=== PATIENT | female | born 1965 | race Caucasian/White ===

== ENCOUNTER 2022-12-30 12:02 | Emergency (ER) | payer OTHER ==
[2022-12-30 12:50] LABS: BASOPHILS # (AUTO) 0.1 10^3/uL (0.0-0.1); BASOPHILS % (AUTO) 0.8 %; EOSINOPHILS # (AUTO) 0.1 10^3/uL (0.0-0.7); EOSINOPHILS % (AUTO) 1.7 %; HCT - HEMATOCRIT 39.1 % (37.0-47.0); HGB - HEMOGLOBIN 12.7 g/dL (12.0-16.0); LYMPHOCYTES # (AUTO) 3.3 10^3/uL (1.5-3.5); LYMPHOCYTES % (AUTO) 54.8 %; MEAN CORPUSCULAR HGB CONC 32.5 g/dL (32.0-36.0); MEAN CORPUSCULAR VOLUME 86.1 fL (81.0-99.0); MEAN PLATELET VOLUME 9.8 fL (7.9-10.8); MONOCYTES # (AUTO) 0.6 10^3/uL (0.0-1.0); MONOCYTES % (AUTO) 10.2 %; NEUTROPHILS # (AUTO) 1.9 10^3/uL (1.5-6.6); NEUTROPHILS % (AUTO) 32.5 %; PLT - PLATELET COUNT 243 10^3/uL (130-450); RED BLOOD COUNT 4.54 10^6/uL (4.20-5.40)
[2022-12-30 13:02] LABS: ALBUMIN 4.2 g/dL (3.2-5.5); ALBUMIN/GLOBULIN RATIO 1.6 (1.0-2.2); BILIRUBIN,TOTAL 0.5 mg/dL (0.2-1.0); CALCIUM 9.2 mg/dL (8.5-10.3); CREATININE 0.9 mg/dL (0.4-1.0); POTASSIUM 3.6 mmol/L (3.5-5.0); TOTAL PROTEIN 6.9 g/dL (6.7-8.2)
[2022-12-30 15:29] LABS: BILIRUBIN,URINE NEGATIVE (NEGATIVE); GLUCOSE, URINE (UA) NEGATIVE (NEGATIVE); KETONES,URINE (UA) NEGATIVE (NEGATIVE); LEUKOCYTE ESTERASE, URINE NEGATIVE (NEGATIVE); NITRITE,URINE NEGATIVE (NEGATIVE); OCCULT BLOOD,URINE NEGATIVE (NEGATIVE); PH,URINE 6.5 PH (5.0-7.5); PROTEIN,URINE NEGATIVE (NEGATIVE); UROBILINOGEN,URINE 0.2 (NORMAL) E.U./dL (NORMAL)
[2022-12-30] MEDS ORDERED: iohexoL-300 100 ML VIAL ONE (15:29)
--- NOTE | 2022-12-30 15:39 | ED Physician Documentation ---
PD HPI ABD PAIN - Stated complaint Stated Complaint: ABD PX - Chief complaint Chief Complaint: Abd Pain - History obtained from History obtained from: Patient - History of Present Illness Timing - onset: How many weeks ago (4) Timing - duration: Weeks (4) Timing - details: Gradual onset Pain level max: 4 Pain level now: 3 Quality: Aching, Dull Location: LLQ Radiation: No: Chest, , Lower back, Left flank, Left shoulder, Right flank, Right shoulder, Upper back Improved by: Other (nothing) Worsened by: Other (nothing) Associated symptoms: Nausea, Constipation. No: Fever, Vomiting, Hematemesis, Melena, Hematochezia, Dysuria Recently seen: Clinic (being worked up by her PCP, but states that she is awaiting a pre-auth for CT. States increased pain today. States normal colonoscopy 7 years ago.) Review of Systems Constitutional: denies: Fever, Chills Respiratory: denies: Dyspnea, Cough GI: denies: Vomiting, Hematemesis, Bloody / black stool : denies: Dysuria Skin: denies: Rash Musculoskeletal: denies: Neck pain, Back pain Neurologic: denies: Headache PD PAST MEDICAL HISTORY - Past Medical History Past Medical History: Yes - Past Surgical History Past Surgical History: Yes General: Appendectomy - Present Medications Home Medications: Ambulatory Orders Medication Instructions Recorded Confirmed Magnesium Citrate 296 ml PO DAILY #296 ml 12/30/22 polyethylene glycoL 3350(BULK) 17 gm PO DAILY PRN #1 each 12/30/22 [Miralax] - Allergies Allergies/Adverse Reactions: Allergies Allergy/AdvReac Type Severity Reaction Status Date / Time Sulfa (Sulfonamide Allergy Unknown Verified 12/30/22 12:12 Antibiotics) PD ED PE NORMAL - Vitals Vital signs reviewed: Yes - General General: Alert and oriented X 3, No acute distress - HEENT HEENT: PERRL, Moist mucous membranes - Neck Neck: Supple, no meningeal sign - Cardiac Cardiac: RRR, Strong equal pulses - Respiratory Respiratory: No respiratory distress, Clear bilaterally - Abdomen Abdomen: Soft, Non tender, Non distended - Back Back: No CVA TTP, No spinal TTP - Derm Derm: Warm and dry - Neuro Neuro: Alert and oriented X 3 - Psych Psych: Normal mood, Normal affect Results - Vitals Vitals: Vital Signs - 24 hr 12/30/22 12/30/22 12:08 16:44 Temperature 37.1 C Heart Rate 69 76 Respiratory 16 16 Rate Blood Pressure 139/92 H 134/89 H O2 Saturation 100 100 Oxygen O2 Source Room air - Labs Labs: Laboratory Tests 12/30/22 12/30/22 12/30/22 12:26 12:45 12:45 WBC 6.0 RBC 4.54 Hgb 12.7 Hct 39.1 MCV 86.1 MCH 28.0 MCHC 32.5 RDW 13.0 Plt Count 243 MPV 9.8 Neut # (Auto) 1.9 Lymph # (Auto) 3.3 Shannon # (Auto) 0.6 Eos # (Auto) 0.1 Baso # (Auto) 0.1 Absolute Nucleated RBC 0.00 Nucleated RBC % 0.0 Sodium 140 Potassium 3.6 Chloride 103 Carbon Dioxide 30 Anion Gap 7.0 BUN 13 Creatinine 0.9 Estimated GFR (MDRD) 65 L Glucose 111 H Calcium 9.2 Total Bilirubin 0.5 AST 17 ALT 15 Alkaline Phosphatase 134 H Total Protein 6.9 Albumin 4.2 Globulin 2.7 Albumin/Globulin Ratio 1.6 Lipase 44 Urine Color LIGHT YELLOW Urine Clarity CLEAR Urine pH 6.5 Ur Specific [place] <=1.005 Urine Protein NEGATIVE Urine Glucose (UA) NEGATIVE Urine Ketones NEGATIVE Urine Occult Blood NEGATIVE Urine Nitrite NEGATIVE Urine Bilirubin NEGATIVE Urine Urobilinogen 0.2 (NORMAL) Ur Leukocyte Esterase NEGATIVE Ur Microscopic Review NOT INDICATED Urine Culture Comments NOT INDICATED PD Medical Decision Making - ED course Complexity details: reviewed results, re-evaluated patient, considered differential, d/w patient ED course: Patient is a 57-year-old female with left-sided abdominal pain and constipation. No acute findings on CT scan. CBC is normal. Your abdominal panel does not show any significant abnormalities, minimally elevated alkaline phosphatase and mildly elevated nonfasting glucose. Urinalysis is normal. CT scan shows large amount of stool throughout the colon consistent with constipation. No other a cute abnormalities. We will place the patient on laxatives for home and have her follow-up with her doctor for further care. Patient counseled regarding signs and symptoms for which I believe and urgent re-evaluation would be necessary. Patient with good understanding of and agreement to plan and is comfortable going home at this time This document was made in part using voice recognition software. While efforts are made to proofread this document, sound alike and grammatical errors may occur. Departure - Departure Disposition: 01 Home, Self Care Clinical Impression: Constipation Qualifiers: Constipation type: unspecified constipation type Qualified Code(s): K59.00 - Constipation, unspecified Abdominal pain Qualifiers: Abdominal location: left lower quadrant Qualified Code(s): R10.32 - Left lower quadrant pain Condition: Good Instructions: ED Constipation Follow-Up: JASPER HOLT ARNP [Primary Care Provider] - Within 1 week Prescriptions: Magnesium Citrate 296 ml PO DAILY #296 ml polyethylene glycoL 3350(BULK) [Miralax] 17 gm PO DAILY PRN #1 each PRN Reason: Constipation Comments: You have constipation on your CT scan today. Your prescriptions were sent to [facility] in [place]. Drink plenty of fluids. Please return if you worsen. ABDOMEN: Lung bases: Lung bases are clear. Heart size is normal. Bilateral breast implants. Solid organs: Mild hepatic steatosis. Liver is normal in size. There is a 1.5 cm cyst in the left hepatic lobe. A 2.8 cm hepatic hypodensity in the anterior right hepatic lobe is indeterminate but also likely a cyst. Spleen is normal in size and enhancement. Gallbladder is normal. Biliary system is non dilated. Pancreas enhances normally. No adrenal nodules. Kidneys demonstrate normal size and enhancement, without hydronephrosis. Peritoneum and bowel: Bowel loops demonstrate normal wall thickness and caliber. No free fluid or air. Nodes and vessels: No retroperitoneal or mesenteric adenopathy by size criteria. Aorta and inferior vena cava are normal in size. Miscellaneous: No ventral hernias. PELVIS: Genitourinary: Bladder wall thickness is normal. Miscellaneous: No inguinal hernias or adenopathy. Bones: A sclerotic focus in the right iliac bone is noted, most likely a bone widened.. No vertebral body compression fractures. Moderate degenerative disc and facet disease in the lower lumbar spine. IMPRESSION: 1. No acute inflammatory process is identified in abdomen or pelvis. 2. There is a large amount of stool in colon. 3. Suspect hepatic cysts. Discharge Date/Time: 12/30/22 17:08
[2022-12-30 15:49] LABS: CLARITY,URINE CLEAR (CLEAR)
--- NOTE | 2022-12-30 16:39 | CT Report ---
PROCEDURE: ABDOMEN/PELVIS W INDICATIONS: LLQ abd pain x 4 weeks CONTRAST: 100mL TECHNIQUE: After the administration of IV contrast, 5 mm thick sections acquired from the diaphragms to the symp hysis. 5 mm thick coronal and sagittal reformats were acquired. For radiation dose reduction, the f ollowing was used: automated exposure control, adjustment of mA and/or kV according to patient size. COMPARISON: None. FINDINGS: Image quality: Excellent. ABDOMEN: Lung bases: Lung bases are clear. Heart size is normal. Bilateral breast implants. Solid organs: Mild hepatic steatosis. Liver is normal in size. There is a 1.5 cm cyst in the left he patic lobe. A 2.8 cm hepatic hypodensity in the anterior right hepatic lobe is indeterminate but also likely a cyst. Spleen is normal in size and enhancement. Gallbladder is normal. Biliary system is non dilated. Pancreas enhances normally. No adrenal nodules. Kidneys demonstrate normal size and e nhancement, without hydronephrosis. Peritoneum and bowel: Bowel loops demonstrate normal wall thickness and caliber. No free fluid or a ir. Nodes and vessels: No retroperitoneal or mesenteric adenopathy by size criteria. Aorta and inferior vena cava are normal in size. Miscellaneous: No ventral hernias. PELVIS: Genitourinary: Bladder wall thickness is normal. Miscellaneous: No inguinal hernias or adenopathy. Bones: A sclerotic focus in the right iliac bone is noted, most likely a bone widened.. No vertebral body compression fractures. Moderate degenerative disc and facet disease in the lower lumbar spine. IMPRESSION: 1. No acute inflammatory process is identified in abdomen or pelvis. 2. There is a large amount of stool in colon. 3. Suspect hepatic cysts. Reviewed by: Mario Blunt MD on 12/30/2022 3:38 PM AKDT Approved by: Mario Blunt MD on 12/30/2022 3:38 PM AKDT Station ID: [id number]
[2022-12-30 16:45] VITALS: BP 134/89
[2022-12-30] MEDS: iohexoL-300 100 ML VIAL IVP ONE (18:18)
== END 2022-12-30 17:08 | disposition home or self-care (01) ==
LOC: ED 12:02
DX: R10.32 Left lower quadrant pain (principal); K59.00 Constipation, unspecified
CPT/HCPCS: 36415; 74177; 80053; 81003; 83690; 85025; 99284; Q9967; 81001; 87086

== ENCOUNTER 2023-03-16 10:49 | Outpatient (CLI) | payer OTHER ==
--- NOTE | 2023-03-16 11:08 | CARDIAC PROCEDURE NOTE ---
Stress Test Report Service Date: 03/16/23 Service Time: 11:00 Ordering Provider: Teresa Soler NP Indication for Test: Assess episodic atypical chest discomfort. Significant Medical History: Nikkie is referred for evaluation of two chest pain episodes occurring approximately 1 month ago. She reports that the first episode started while she was at rest at around 9:30 in the evening and was centered in her left chest, radiating from front to back. It was not especially severe nor associated with diaphoresis, nausea or shortness of breath. She was able to go to sleep and noted that it remained present at a level of about 7/10 when she awoke in the early hours of the morning and may have then gotten somewhat better with burping. 3 nights later she noted a similar discomfort occurring on and off, with resolution after nearly an hour. She was seen the next day in Urgent Care, at which point an EKG was normal. She comments that she may have had more fatigue than average around that time as she was recovering from a head cold. She works full-time at the [employer] in the [employer], with 2 days a week on-site in [place] and 3 days remote work. [place] and remains active walking up and down the hills and exercising without symptoms, which have not recurred since the initial 2 episodes. Cardiac Risk Factors: Negative for hypertension, known hyperlipidemia, diabetes and cigarette smoking ever. Both maternal grandparents had coronary disease in their later years but no one else in her family has coronary disease to her knowledge. She lost her 24-year-old brother due to sudden , deemed to be due to hypertrophic cardiomyopathy; she and her siblings were screened with negative findings. Type of Stress Test: Exercise Treadmill Test (ETT) Procedure: -Exercise Treadmill Test- After signing informed consent, the patient performed treadmill exercise using a Devonte protocol. The patient exercised for 8 minutes 56 seconds and achieved a peak heart rate of 152 (93 percent predicted maximum heart rate for age), and an estimated workload of 10.2 METS. The test was terminated due to fatigue/shortness of breath. Resting heart rate: 68 Peak heart rate: 152 Normal response to exercise. Resting BP: 130/91 Peak BP: 185/82 Elevated resting diastolic BP at rest with normal increase of systolic and decrease of diastolic BP in response to exercise. Rhythm during exercise: Sinus rhythm throughout, no PVCs recorded. Symptoms: She denied experiencing any chest discomfort whatsoever. EKG at rest showed normal sinus rhythm with an isolated q wave in aVL of unclear significance and fully normal otherwise. EKG at peak stress showed Jpoint depression with upsloping ST segments, NOT meeting diagnostic EKG criteria for ischemia. In Recovery HR rapidly/normally decreased towards baseline, with slower decrease in BP (164/86 at 5:00). No imaging was ordered with this stress test. I, Shreyas Fraire MD, was present throughout this treadmill stress study and supervised it in its entirety. Summary: 1) Exercise tolerance well above average for age as evidenced by REBECCA of -25%. 2) Normal resting EKG. 3) Adequate level of exercise was achieved on this treadmill stress test. 4) Normal BP response to exercise. 5) No ischemic changes by EKG criteria were seen at peak stress. 6) No imaging was ordered with this test. Conclusions and Recommendations: 1) The nature of Nikkie's chest discomfort, lack of recurrence after the first two episodes and ETT results today, are highly reassuring with regard to the absence of coronary artery disease. 2) I recommended that she confirm that she has had a recent cholesterol panel and the values are not in the range where statin treatment for primary prevention would be appropriate. 3) Otherwise I told her that as long as her pain is not exertional in nature, nor frequently repetitive, the value added by a formal Cardiology consultation at this point is likely fairly low. I encouraged her to discuss these issues with Ms. Soler in follow up to the test.
== END 2023-03-16 10:50 | disposition home or self-care (01) ==
LOC: DI 10:49
PROVIDERS: ATTEND Nurse Practitioner Family
DX: R07.9 Chest pain, unspecified (principal)
CPT/HCPCS: 93017

== ENCOUNTER 2023-06-18 08:00 | Outpatient (CLI) | payer OTHER | END 2023-06-18 23:59 | disposition home or self-care (01) | LOC: LAB.S 08:00 | PROVIDERS: ATTEND Physician Assistant | DX: R30.0 Dysuria (principal) | CPT/HCPCS: 87086 ==